=== PATIENT | male | born 1965 | race Caucasian/White ===

== ENCOUNTER 2016-09-25 07:00 | Emergency (ER) | payer MEDICARE ==
[~2016-09-25] VITALS: Ht 198.1 cm; Wt 146.2 kg
[~2016-09-25 07:00] MED LIST: ALBU0.63 NEB; APIX5TAB PO; BECL8.7A6 INH; ESCI5TAB7 PO; ESOM20CA PO; FLUT9.9S NAS; ONDA4TAB7 PO; SIME125T10 PO; WARF5TAB PO
[2016-09-25] MEDS ORDERED: MAALOX/HYOSCYAMINE/LIDOCAINE 45 ML BOTTLE ONE (07:53)
[2016-09-25] MEDS ORDERED: ONDANSETRON 2MG/ML, 2ML ONE (07:53)
[2016-09-25] MEDS ORDERED: MAALOX/HYOSCYAMINE/LIDOCAINE 45 ML BOTTLE PO ONE (08:00)
[2016-09-25] MEDS ORDERED: SODIUM CHLORIDE FLUSH 10ML SYR IVF ONE (08:00)
[2016-09-25] MEDS ORDERED: SODIUM CHLORIDE 0.9% 1,000ML IVBOLUS ONE (08:00)
[2016-09-25] MEDS ORDERED: ONDANSETRON 2MG/ML, 2ML IVPush ONE (08:00)
[2016-09-25 08:37] LABS: ASPARTATE AMINO TRANSFERASE 17 U/L (15-37); BLOOD UREA NITROGEN 10 mg/dL (7-18)
[2016-09-25 10:02] VITALS: BP 125/79
== END 2016-09-25 10:03 | disposition home or self-care (01) ==
LOC: ED 08:17
DX: K21.9 Gastro-esophageal reflux disease without esophagitis (principal); K52.9 Noninfective gastroenteritis and colitis, unspecified; Z86.711 Personal history of pulmonary embolism; Z86.718 Personal history of other venous thrombosis and embolism
CPT/HCPCS: 36415; 80053; 83690; 85025; 96361; 96374; 99284; J2405; J7030